=== PATIENT | female | born 1970 | race Caucasian/White ===

== ENCOUNTER 2019-12-01 07:41 | Outpatient (CLI) | payer OTHER ==
[~2019-12-01 07:41] MED LIST: CARAFATE1 G PO; MEDROLPACK PO; PROTONIX40 MG PO; ZYRTEC10 MG PO
== END 2019-12-01 07:47 | disposition home or self-care (01) ==
LOC: NUCLEAR 07:41
PROVIDERS: ATTEND Internal Medicine
DX: I11.9 Hypertensive heart disease without heart failure (principal); I25.10 Atherosclerotic heart disease of native coronary artery without angina pectoris; E78.2 Mixed hyperlipidemia
CPT/HCPCS: A9500; 93017; 78452